=== PATIENT | female | born 1960 | race Caucasian/White ===

== ENCOUNTER 2017-01-18 09:15 | Emergency (ER) | payer OTHER ==
[~2017-01-18] VITALS: Ht 152.4 cm; Wt 54.5 kg
[~2017-01-18 09:15] MED LIST: ALBU18HF IH; ALBU8.5H5 INH; CARI350T PO; IBUP-1542 PO; IBUP200C11 PO; ORPH100T PO; UDROBDM PO
[2017-01-18 09:18] VITALS: Ht 152.4 cm; Wt 54.5 kg
[2017-01-18] MEDS ORDERED: AZIT250T94 PO (09:37)
[2017-01-18] MEDS ORDERED: IBUP-1542 PO (09:37)
[2017-01-18] MEDS ORDERED: D-ME473S18 PO (09:37)
--- NOTE | 2017-01-18 09:40 | ERD ---
ER Documentation Chief Complaint Date/Time DATE: 01/18/17 TIME: 09:39 Chief Complaint cough,st x 2 weeks HPI 56-year-old female presents with productive cough and sore throat for the last 2 weeks. There is no measured fevers. She denies chest pain, vomiting, abdominal pain, additional complaints. ROS All systems reviewed and are negative except as per history of present illness. Medications Home Meds Active Scripts Dextromethorphan Hb-Promethazine Hcl (Promethazine DM Syrup) 473 Ml Syrup, 5 ML PO Q6H Y for COUGH, #4 OZ Prov:DANIEL PRINGLE MD 01/18/17 Ibuprofen* (Motrin*) 600 Mg Tab, 600 MG PO Q6, #15 TAB Prov:DANIEL PRINGLE MD 01/18/17 Azithromycin* (Zithromax*) 250 Mg Tablet, 250 MG PO .ZPACK DIRECTED, #6 TAB TAKE 500 MG (2 TABS) THE FIRST DAY THEN 250 MG (1 TAB) DAYS 2-5 Prov:DANIEL PRINGLE MD 01/18/17 Orphenadrine Citrate (Norflex) 100 Mg Tablet.sa, 100 MG PO BID for 3 Days, TAB.SA Prov:FLORIDALMA GODWIN 03/09/16 Ibuprofen* (Motrin*) 600 Mg Tab, 600 MG PO Q6, #30 TAB Prov:FLORIDALMA GODWIN 03/09/16 Ibuprofen* (Advil*) 200 Mg Capsule, 200 MG PO Q6H Y for PAIN, #30 CAP 0 Refills Prov:BRIGIDO PRADO PA-C 04/22/15 Guaifenesin-Dextromethorphan* (Robitussin* DM) 100MG/10MG/5ML Syrup, 10 ML PO Q6H Y for COUGH, #240 ML 0 Refills Prov:BRIGIDO PRADO PA-C 04/22/15 Albuterol Sulfate* (Ventolin HFA*) 18 Gm Hfa.aer.ad, 2 PUFF IH Q4H Y for WHEEZING AND RESP DISTRESS, #1 EA 0 Refills Prov:BRIGIDO PRADO PA-C 04/22/15 Albuterol Sulfate* (Albuterol Sulfate* HFA) 8.5 Gm Hfa.aer.ad, 1-2 PUFF INH Q4 Y for SHORTNESS OF BREATH, #1 EA Prov:TOMMY VAZQUEZ MD 01/02/15 Carisoprodol* (Soma*) 350 Mg Tablet, 350 MG PO TID Y for MUSCLE SPASMS, #15 TAB Prov:TOMMY VAZQUEZ MD 01/02/15 Ibuprofen* (Motrin*) 600 Mg Tab, 600 MG PO Q6 for PAIN, #30 TAB Prov:TOMMY VAZQUEZ MD 01/02/15 Allergies Allergies: Coded Allergies: No Known Allergy (Unverified , 03/09/16) PMhx/Soc History of Surgery: No Anesthesia Reaction: No Hx Neurological Disorder: No Hx Respiratory Disorders: No Hx Cardiac Disorders: Yes (HIGH CHOLESTEROL ) Hx Psychiatric Problems: No Hx Miscellaneous Medical Probl: No Hx Alcohol Use: No Hx Substance Use: No Hx Tobacco Use: No Physical Exam Vitals Vital Signs Date Time Temp Pulse Resp B/P Pulse Ox O2 Delivery O2 Flow Rate FiO2 01/18/17 09:18 98.3 60 18 137/74 99 Physical Exam Const: []Alert, [id number]. Head: Atraumatic Eyes: Normal Conjunctiva ENT: Normal External Ears, Nose and Mouth.TMs and oropharynx normal. Neck: Full range of motion..~ No meningismus. Resp: Clear to auscultation bilaterally. Coarse cough without rales, wheezing or retractions. Cardio: Regular rate and rhythm, no murmurs Abd: Soft, non tender, non distended. Normal bowel sounds Skin: No petechiae or rashes Back: No midline or flank tenderness Ext: No cyanosis, or edema Neur: Awake and alert Psych: Normal Mood and Affect Procedures/MDM Patient presents with URI symptoms for the last 2 weeks without evidence of hypoxemia or respiratory distress. Given the duration and productive cough she will be treated with Zithromax, promethazine and ibuprofen. The patient was stable with no new complaints during the ER course. Clinically, there is no current evidence to suggest meningitis, sepsis, acute abdomen, pneumonia, acute coronary syndrome, pulmonary embolism, or any other emergent condition appearing to require further evaluation or hospitalization. The patient should certainly return for any new or worsening symptoms per the aftercare instructions. They should otherwise follow-up with her primary care doctor for reevaluation this week. Departure Diagnosis: Primary Impression: URI (upper respiratory infection) URI type: unspecified URI Qualified Code: J06.9 - Upper respiratory tract infection, unspecified type Condition: Stable Patient Instructions: Acute Bronchitis Additional Instructions: Cheque otro vez con brooke doctor primario en el proximo aguilar or regresa para mas o nueva simptomas. DANIEL PRINGLE MD Jan 18, 2017 09:40
== END 2017-01-18 10:36 | disposition home or self-care (01) ==
LOC: FTE 09:15
DX: J06.9 Acute upper respiratory infection, unspecified (principal)
CPT/HCPCS: 99284

== ENCOUNTER 2018-01-05 08:17 | Emergency (ER) | END 2018-01-05 09:03 | disposition home or self-care (01) ==

== ENCOUNTER 2018-01-19 21:03 | Emergency (ER) | END 2018-01-20 | disposition home or self-care (01) ==

== ENCOUNTER 2018-02-17 10:11 | Emergency (ER) | END 2018-02-17 11:50 | disposition home or self-care (01) ==

== ENCOUNTER 2018-08-22 15:33 | Emergency (ER) | payer OTHER ==
[~2018-08-22] VITALS: Wt 55.7 kg
[~2018-08-22 15:33] MED LIST changes: +AMOX500C2 PO; +AZIT250T PO; +BENZ-6 PO; +D-ME473S18 PO; +D-ME473S2 PO; +DIAZ5TAB PO; +FAMO-96 PO; +GUAI5SYR2 PO; +MED4DP PO; +NPH10OT LEFT EAR; -UDROBDM PO
[2018-08-22 15:49] VITALS: BP 162/88; PULSE 57; RESP 22
[2018-08-22] MEDS ORDERED: ACETAMINOPHEN 500 MG TAB PO STA (19:51)
--- NOTE | 2018-08-22 20:12 | ERD ---
ER Documentation Chief Complaint Chief Complaint dizzy x5d. some nausea, no VD. HPI 58-year-old with past meds medical history of hyperlipidemia presents with 5-day complaint of dizziness. Dizziness associated with intermittent nausea but no episodes of vomiting. Says she has sensation of room spinning after waking up from bed. This is her second such episode of dizziness. She gets dizzy spells intermittently over the past 5 days occurring mostly in the morning when she wakes up. She otherwise denies chest pain, shortness of breath, dyspnea, changes in visual acuity blurry vision, headache. He otherwise reports relatively good health and is without any further complaints. ROS All systems reviewed and are negative except as per history of present illness. Medications Home Meds Active Scripts Ondansetron (Ondansetron Odt) 4 Mg Tab.rapdis, 4 MG PO Q6H PRN for NAUSEA AND/OR VOMITING, #10 TAB Prov:JAZIEL LEE PA-C 08/22/18 Meclizine Hcl* (Antivert*) 12.5 Mg Tab, 12.5 MG PO Q6H PRN for DIZZINESS, #20 TAB Prov:JAZIEL LEE PA-C 08/22/18 Diazepam* (Valium*) 5 Mg Tablet, 5 MG PO Q8 for 3 Days, TAB Prov:FLORIDALMA GODWIN 02/17/18 Methylprednisolone* (Medrol* DOSE PACK) 4 Mg/Dose-Pack Tab.ds.pk, 4 MG PO . DIRECTED for 6 Days, PACKET Prov:FLORIDALMA GODWIN 02/17/18 Ibuprofen* (Motrin*) 600 Mg Tab, 600 MG PO Q6, #30 TAB Prov:MARA FUNG PA-C 01/19/18 Amoxicillin* (Amoxicillin*) 500 Mg Cap, 500 MG PO TID for 10 Days, CAP Prov:MARA FUNGC 01/19/18 Dextromethorphan Hb-Promethazine Hcl* (Promethazine DM* Syrup) 473 Ml Syrup, 5 ML PO Q6 PRN for COUGH, #100 ML Prov:ERICA BALBUENA PA-C 01/05/18 Benzonatate* (Tessalon Perle*) 100 Mg Capsule, 100 MG PO Q8H PRN for COUGH, #30 CAP Prov:ERICA BALBUENA PA-C 01/05/18 Famotidine* (Pepcid*) 20 Mg Tablet, 20 MG PO BID for 4 Days, #30 TAB Prov:ERICA BALBUENA PA-C 01/05/18 Neomycin/Polymyxin/Hydrocort* (Cortisporin* Otic) 10 Ml Susp, 4 DROP LEFT EAR QID for 7 Days, EA Prov:ERICA BALBUENA PA-C 01/05/18 Dextromethorphan Hb-Promethazine Hcl (Promethazine DM Syrup) 473 Ml Syrup, 5 ML PO Q6H PRN for COUGH, #4 OZ Prov:DANIEL PRINGLE MD 01/18/17 Ibuprofen* (Motrin*) 600 Mg Tab, 600 MG PO Q6, #15 TAB Prov:DANIEL PRINGLE MD 01/18/17 Azithromycin* (Zithromax*) 250 Mg Tablet, 250 MG PO .ZPACK DIRECTED, #6 TAB TAKE 500 MG (2 TABS) THE FIRST DAY THEN 250 MG (1 TAB) DAYS 2-5 Prov:DANIEL PRINGLE MD 01/18/17 Orphenadrine Citrate (Norflex) 100 Mg Tablet.sa, 100 MG PO BID for 3 Days, TAB.SA Prov:FLORIDALMA GODWIN 03/09/16 Ibuprofen* (Motrin*) 600 Mg Tab, 600 MG PO Q6, #30 TAB Prov:FLORIDALMA GODWIN 03/09/16 Ibuprofen* (Advil*) 200 Mg Capsule, 200 MG PO Q6H PRN for PAIN, #30 CAP 0 Refills Prov:BRIGIDO PRADO PA-C 04/22/15 Guaifenesin-Dextromethorphan* (Robitussin* DM) 100MG/10MG/5ML Syrup, 10 ML PO Q6H PRN for COUGH, #240 ML 0 Refills Prov:BRIGIDO PRADO PA-C 04/22/15 Albuterol Sulfate* (Ventolin HFA*) 18 Gm Hfa.aer.ad, 2 PUFF IH Q4H PRN for WHEEZING AND RESP DISTRESS, #1 EA 0 Refills Prov:BRIGIDO PRADO PA-C 04/22/15 Albuterol Sulfate* (Albuterol Sulfate* HFA) 8.5 Gm Hfa.aer.ad, 1-2 PUFF INH Q4 PRN for SHORTNESS OF BREATH, #1 EA Prov:TOMMY VAZQUEZ MD 01/02/15 Carisoprodol* (Soma*) 350 Mg Tablet, 350 MG PO TID PRN for MUSCLE SPASMS, #15 TAB Prov:TOMMY VAZQUEZ MD 01/02/15 Ibuprofen* (Motrin*) 600 Mg Tab, 600 MG PO Q6 for PAIN, #30 TAB Prov:TOMMY VAZQUEZ MD 01/02/15 Allergies Allergies: Coded Allergies: No Known Allergy (Unverified , 02/17/18) PMhx/Soc Medical and Surgical Hx: pt denies Surgical Hx History of Surgery: No Anesthesia Reaction: No Hx Neurological Disorder: No Hx Respiratory Disorders: No Hx Cardiac Disorders: Yes (HIGH CHOLESTEROL ) Hx Psychiatric Problems: No Hx Miscellaneous Medical Probl: No Hx Alcohol Use: No Hx Substance Use: No Hx Tobacco Use: No Smoking Status: Current every day smoker FmHx Family History: No diabetes, No coronary disease, No other Physical Exam Vitals Vital Signs Date Temp Pulse Resp B/P (MAP) Pulse Ox O2 O2 Flow FiO2 Time Delivery Rate 08/22/18 98.1 57 22 162/88 98 15:49 (112) Physical Exam I have reviewed the triage vital signs. Const: Well nourished, well developed, appears stated age Eyes: PERRL, no conjunctival injection HENT: NCAT, Neck supple without meningismus, no TMJ tenderness CV: RRR, Warm, well-perfused extremities RESP: CTAB, Unlabored respiratory effort GI: soft, non-tender, non-distended, no masses MSK: No gross deformities appreciated Skin: Warm, dry. No rashes Neuro: Alert, Sensation and motor function of extremities grossly intact. Psych: Appropriate mood and affect. Results 24 hrs Current Medications Medications Dose Sig/Vika Start Time Status Last (Trade) Ordered Route PRN Stop Time Admin Dose Reason Admin 500 mg ONCE STAT 08/22/18 DC Acetaminophen PO 19:51 (Tylenol 08/22/18 20:00 Tab) Ondansetron 4 mg ONCE ONCE 08/22/18 Cancel HCl (Zofran PO 20:30 Tab) 08/22/18 20:31 Meclizine 12.5 mg ONCE ONCE 08/22/18 08/22/18 HCl PO 20:30 20:20 (Antivert) 08/22/18 20:31 Ondansetron 4 mg ONCE ONCE 08/22/18 HCl (Zofran ODT 20:30 Odt) 08/22/18 20:31 Procedures/MDM This patient presents with dizziness, most consistent with a peripheral cause, likely vertigo. Differential diagnoses includes: BPPV versus labrynthitis. No red flag features for central vertigo to include gradual onset, vertical/bidirectional or nonfatigable nystagmus, focal neurologic findings on exam (including inability to ambulate). Presentation not consistent with an acute TELEGRAPHER AGENT infection, vertebral basilar artery insufficiency, cerebellar hemorrhage or infarction, intracranial mass or bleed, temporal lobe epilepsy, multiple sclerosis, trauma, complex migraine headache. Other acute, emergent causes of vertigo are unlikely given at this time. No indication for head imaging at this time. Plan: meclizine, zofran DISPOSITION PLAN: We discussed follow up with the patient's primary care doctor within 24 to 48 hours. Patient counseled regarding my diagnostic impression and care plan. Prior to discharge all questions answered. Pt agrees with treatment plan and unders tands strict return precautions. Precautionary instructions provided including instructions to return to the ER if not improving or for any worsening or changing symptoms or concerns. Departure Diagnosis: Primary Impression: Vertigo Condition: Stable Patient Instructions: Vertigo, Unspecified JAZIEL LEE PA-C Aug 22, 2018 20:12
[2018-08-22] MEDS ORDERED: ONDA4TAB14 PO (20:25)
[2018-08-22] MEDS ORDERED: MECL12.574 PO (20:25)
[2018-08-22] MEDS ORDERED: ONDANSETRON 4 MG TAB PO ONE (20:30)
[2018-08-22] MEDS ORDERED: ONDANSETRON (ODT) 4 MG TAB ODT ONE (20:30)
[2018-08-22] MEDS ORDERED: MECLIZINE 12.5 MG TAB PO ONE (20:30)
== END 2018-08-22 20:46 | disposition home or self-care (01) ==
LOC: FTE 15:33
DX: R42 Dizziness and giddiness (principal); R11.0 Nausea
CPT/HCPCS: Z7502; Z7610; 99283